=== PATIENT | female | born 1945 | race Caucasian/White ===

== ENCOUNTER 2016-10-29 07:16 | Emergency (ER) | payer MEDICARE, BC ==
[~2016-10-29 07:16] MED LIST: CAL; LORT7.5T3 PO; MULTI VIT; OXYC-360 PO; PHENERGAN; PREDPOW70 PO; PRIL20TA2 PO; PROM25SU8 PO
[2016-10-29 07:19] VITALS: BP 138/77; PULSE 118; RESP 16; TEMP 98.1; O2SAT 99
[2016-10-29] MEDS ORDERED: SODIUM CHLOR 0.9% 1000 ML INJ 1,000 ML IV SCH (07:33)
[2016-10-29] MEDS ORDERED: ONDANSETRON HCL 4 MG/2 ML VIAL IVP ONE (07:45)
[2016-10-29] MEDS ORDERED: SODIUM CHLORIDE 0.9% FLUSH 10 ML FLUSH IV FLUSH PRN (07:45)
[2016-10-29] MEDS ORDERED: MORPHINE SULFATE 4 MG/ML INJ IV PUSH ONE ×2 (08:00→09:45)
--- NOTE | 2016-10-29 08:01 | RADRPT ---
EXAM DATE/TIME: 10/29/2016 07:32 [facility] COMPARISON: No previous studies available for comparison. INDICATIONS : Lower right sided chest pain, upper right abdominal pain. MEDICAL HISTORY : Vinson's esophagus. SURGICAL HISTORY : None. ENCOUNTER: Initial ACUITY: 3 days PAIN SCORE: 5/10 LOCATION: Right lower chest FINDINGS: A single view of the chest demonstrates the lungs to be symmetrically aerated without evidence of in filtrate or effusion. There is a 7 mm nodule overlying the right lower lung field along the undersurf roger of the right eighth rib. It is fairly dense could be a granuloma. Suggest followup outpatient P A and lateral views of the chest or comparison with old films if available The cardiomediastinal con tours are unremarkable. Osseous structures are intact. CONCLUSION: There is a 7 mm nodule overlying the right lower lung field along the undersurface of the right eight h rib. It is fairly dense could be a granuloma. Suggest followup outpatient PA and lateral views of the chest or comparison with old films if available. Marc Maya MD on October 29, 2016 at 7:58 Board Certified Radiologist. This report was verified electronically.
--- NOTE | 2016-10-29 08:03 | PD ---
HPI Chief Complaint: GI Complaint Time Seen by Provider: 07:33 Travel History International Travel<30 days: No Contact w/Intl Traveler<30days: No Traveled to known affect area: No History of Present Illness HPI Patient is a 71-year-old female with history of diabetes, hypertension, hyper triglyceridemia, Vinson esophagus who presents to emergency room with complaints of right upper quadrant abdominal pain. Reports that symptoms began on Bryan night, reports that she isn't feeling nauseous, reports that overall, she has had decreased oral intake because of this pain. Patient reports nausea with no vomiting. Patient denies any constipation or diarrhea. Patient denies any chest pain or shortness of breath. Patient denies any fevers or chills. PFSH Past Medical History Asthma: No Heart Rhythm Problems: No High Cholesterol: Yes (HIGH CHOLESTERAL) Congestive Heart Failure: No COPD: No Diabetes: Yes GERD: Yes Genitourinary: No Headaches: No Hepatitis: No Hiatal Hernia: No Musculoskeletal: Yes Neurologic: No Reproductive: No Respiratory: No Migraines: No Myocardial Infarction: No Seizures: No Sleep Apnea: No Ulcer: No Past Surgical History Abdominal Surgery: Yes (HYSTERECTOMY) Cardiac Surgery: No Cholecystectomy: No Ear Surgery: No Eye Surgery: No Genitourinary Surgery: No Gynecologic Surgery: Yes Oral Surgery: No Thoracic Surgery: No Social History Alcohol Use: No Tobacco Use: No Substance Use: No Allergies-Medications (Allergen,Severity, Reaction): Coded Allergies: Dust (Unverified Allergy, Mild, 03/02/09) Latex (Unverified Adverse Reaction, Intermediate, 03/02/09) Adhesives (Verified Adverse Reaction, Unknown, IRRITATION, 10/29/16) Uncoded Allergies: TREES (Allergy, Mild, 03/02/09) Reported Meds & Prescriptions Reported Meds & Active Scripts Active Reported Phenergan (Promethazine HCl) 25 Mg Tab 25 Mg PO Q6HPRN FOR NAUSEA/VOMITING Lortab 7.5/500 (Acetaminophen/Hydrocodone Bitart) Tab 1 Tab PO Q4HPRN FOR PAIN [Phenergan] [Prednisone] PO DAILY Percocet (Oxycodone/Acetaminophen) 5 Mg/325 Mg Tab 1 Tab PO Q4HPRN FOR PAIN [Enrique] 1 DAILY [Multi Vit] 1 DAILY Prilosec Otc (Omeprazole Magnesium) 20 Mg Tab 20 Mg PO DAILY Review of Systems General / Constitutional: No: Fever, Chills Eyes: No: Visual changes HENT: No: Headaches Cardiovascular: No: Chest Pain or Discomfort Respiratory: No: Shortness of Breath Gastrointestinal: Positive: Nausea, Abdominal Pain, No: Vomiting, Constipation Genitourinary: No: Urgency, Frequency, Dysuria, Hematuria, Pelvic Pain Musculoskeletal: No: Pain Skin: No Rash Neurologic: No: Weakness Psychiatric: No: Depression Endocrine: No: Polydipsia Hematologic/Lymphatic: No: Easy Bruising Physical Exam Narrative GENERAL: Mild distress SKIN: Focused skin assessment warm/dry. HEAD: Atraumatic. Normocephalic. EYES: Pupils equal and round. No scleral icterus. No injection or drainage. ENT: No nasal bleeding or discharge. Mucous membranes pink and moist. NECK: Trachea midline. No JVD. CARDIOVASCULAR: Regular rate and rhythm. No murmur appreciated. RESPIRATORY: No accessory muscle use. Clear to auscultation. Breath sounds equal bilaterally. GASTROINTESTINAL: Abdomen soft, increased tenderness to right upper quadrant, positive McMurphy signed MUSCULOSKELETAL: No obvious deformities. No clubbing. No cyanosis. No edema. NEUROLOGICAL: Awake and alert. No obvious cranial nerve deficits. Motor grossly within normal limits. Normal speech. PSYCHIATRIC: Appropriate mood and affect; insight and judgment normal. Data Data Last Documented VS Vital Signs Date Time Temp Pulse Resp B/P Pulse Ox O2 Delivery O2 Flow Rate FiO2 10/29/16 07:19 98.1 118 16 138/77 99 Orders Complete Blood Count With Diff (10/29/16 07:33) Comprehensive Metabolic Panel (10/29/16 07:33) Lipase (10/29/16 07:33) Prothrombin Time / Inr (Pt) (10/29/16 07:33) Act Partial Throm Time (Ptt) (10/29/16 07:33) Urinalysis - C+S If Indicated (10/29/16 07:33) Iv Access Insert/Monitor (10/29/16 07:33) Ecg Monitoring (10/29/16 07:33) Oximetry (10/29/16 07:33) NPO (10/29/16 07:33) Ondansetron Inj (Zofran Inj) (10/29/16 07:45) Sodium Chlor 0.9% 1000 Ml Inj (Ns 1000 M (10/29/16 07:33) Sodium Chloride 0.9% Flush (Ns Flush) (10/29/16 07:45) Electrocardiogram (10/29/16 07:33) Chest, Single Ap (10/29/16 07:33) Us Abdomen Gallbladder (10/29/16 ) Morphine Inj (Morphine Inj) (10/29/16 08:00) Labs Laboratory Tests Test 10/29/16 10/29/16 07:45 08:10 White Blood Count 8.8 TH/MM3 Red Blood Count 5.08 MIL/MM3 Hemoglobin 14.3 GM/DL Hematocrit 44.1 % Mean Corpuscular Volume 86.8 FL Mean Corpuscular Hemoglobin 28.2 PG Mean Corpuscular Hemoglobin 32.5 % Concent Red Cell Distribution Width 14.2 % Platelet Count 187 TH/MM3 Mean Platelet Volume 9.8 FL Neutrophils (%) (Auto) 76.2 % Lymphocytes (%) (Auto) 10.6 % Monocytes (%) (Auto) 8.8 % Eosinophils (%) (Auto) 4.0 % Basophils (%) (Auto) 0.4 % Neutrophils # (Auto) 6.7 TH/MM3 Lymphocytes # (Auto) 0.9 TH/MM3 Monocytes # (Auto) 0.8 TH/MM3 Eosinophils # (Auto) 0.4 TH/MM3 Basophils # (Auto) 0.0 TH/MM3 CBC Comment DIFF FINAL Differential Comment Prothrombin Time 10.6 SEC Prothromb Time International 1.0 RATIO Ratio Activated Partial 28.1 SEC Thromboplast Time Sodium Level 135 MEQ/L Potassium Level 3.9 MEQ/L Chloride Level 102 MEQ/L Carbon Dioxide Level 19.7 MEQ/L Anion Gap 13 MEQ/L Blood Urea Nitrogen 15 MG/DL Creatinine 0.74 MG/DL Estimat Glomerular Filtration 78 ML/MIN Rate Random Glucose 116 MG/DL Calcium Level 9.5 MG/DL Total Bilirubin 0.5 MG/DL Aspartate Amino Transf 32 U/L (AST/SGOT) Alanine Aminotransferase 48 U/L (ALT/SGPT) Alkaline Phosphatase 55 U/L Total Protein 7.9 GM/DL Albumin 4.3 GM/DL Lipase 152 U/L Urine Color YELLOW Urine Turbidity CLEAR Urine pH 5.5 Urine Specific Hollister 1.036 Urine Protein TRACE mg/dL Urine Glucose (UA) 1000 mg/dL Urine Ketones 80 mg/dL Urine Occult Blood NEG Urine Nitrite NEG Urine Bilirubin NEG Urine Urobilinogen LESS THAN 2.0 MG/DL Urine Leukocyte Esterase TRACE Urine RBC 1 /hpf Urine WBC 3 /hpf Urine Squamous Epithelial 1 /hpf Cells Urine Bacteria RARE /hpf Microscopic Urinalysis Comment CULT NOT INDICATED MDM Medical Decision Making Medical Screen Exam Complete: Yes Emergency Medical Condition: Yes Interpretation(s) EKG at 0756: Sinus tach at 106bpm, qt/qtc: 349/411, no acute st or t wave changes Vital Signs Date Time Temp Pulse Resp B/P Pulse Ox O2 Delivery O2 Flow Rate FiO2 10/29/16 07:19 98.1 118 16 138/77 99 Differential Diagnosis Differential includes acute cholecystitis, gastritis, gastroenteritis, gastric ulcer, acs, arrhythmia Narrative Course Patient is a 71 year old female who presents to ER with c/o of abdominal pain. Patient reports pain to RUQ abdominal pain since Sunday night, reports increased nausea with symptoms. No fever/chills. Denies chest pain/sob. EKG obtained. Patient placed on sample paster. Lab work including LFT's ordered. RUQ US ordered to evaluate for acute cholecystitis as patient does have positive Payton's sign IVF and pain medications ordered Chest x-ray shows a 7 mm nodule overlying the right lower lung field - I did review this with patient as she will need to have follow-up. A copy of patient' s x-ray report was given to her as she will need to follow-up with further studies for this lung nodule. Laboratory Tests Test 10/29/16 10/29/16 07:45 08:10 White Blood Count 8.8 TH/MM3 (4.0-11.0) Red Blood Count 5.08 MIL/MM3 (4.00-5.30) Hemoglobin 14.3 GM/DL (11.6-15.3) Hematocrit 44.1 % (35.0-46.0) Mean Corpuscular Volume 86.8 FL (80.0-100.0) Mean Corpuscular Hemoglobin 28.2 PG (27.0-34.0) Mean Corpuscular Hemoglobin 32.5 % Concent (32.0-36.0) Red Cell Distribution Width 14.2 % (11.6-17.2) Platelet Count 187 TH/MM3 (150-450) Mean Platelet Volume 9.8 FL (7.0-11.0) Neutrophils (%) (Auto) 76.2 % (16.0-70.0) Lymphocytes (%) (Auto) 10.6 % (9.0-44.0) Monocytes (%) (Auto) 8.8 % (0.0-8.0) Eosinophils (%) (Auto) 4.0 % (0.0-4.0) Basophils (%) (Auto) 0.4 % (0.0-2.0) Neutrophils # (Auto) 6.7 TH/MM3 (1.8-7.7) Lymphocytes # (Auto) 0.9 TH/MM3 (1.0-4.8) Monocytes # (Auto) 0.8 TH/MM3 (0-0.9) Eosinophils # (Auto) 0.4 TH/MM3 (0-0.4) Basophils # (Auto) 0.0 TH/MM3 (0-0.2) CBC Comment DIFF FINAL Differential Comment Prothrombin Time 10.6 SEC (9.8-11.6) Prothromb Time International 1.0 RATIO Ratio Activated Partial 28.1 SEC Thromboplast Time (24.3-30.1) Sodium Level 135 MEQ/L (136-145) Potassium Level 3.9 MEQ/L (3.5-5.1) Chloride Level 102 MEQ/L (98-107) Carbon Dioxide Level 19.7 MEQ/L (21.0-32.0) Anion Gap 13 MEQ/L (5-15) Blood Urea Nitrogen 15 MG/DL (7-18) Creatinine 0.74 MG/DL (0.50-1.00) Estimat Glomerular Filtration 78 ML/MIN (>89) Rate Random Glucose 116 MG/DL (74-106) Calcium Level 9.5 MG/DL (8.5-10.1) Total Bilirubin 0.5 MG/DL (0.2-1.0) Aspartate Amino Transf 32 U/L (15-37) (AST/SGOT) Alanine Aminotransferase 48 U/L (10-53) (ALT/SGPT) Alkaline Phosphatase 55 U/L (45-117) Total Protein 7.9 GM/DL (6.4-8.2) Albumin 4.3 GM/DL (3.4-5.0) Lipase 152 U/L (73-393) Urine Color YELLOW (YELLW/STRAW) Urine Turbidity CLEAR (CLEAR) Urine pH 5.5 (5.0-8.5) Urine Specific Hollister 1.036 (1.002-1.035) Urine Protein TRACE mg/dL (NEG-TRACE) Urine Glucose (UA) 1000 mg/dL (NEG) Urine Ketones 80 mg/dL (NEG) Urine Occult Blood NEG (NEG) Urine Nitrite NEG (NEG) Urine Bilirubin NEG (NEG) Urine Urobilinogen LESS THAN 2.0 MG/DL (LESS THAN 2.0) Urine Leukocyte Esterase TRACE (NEG) Urine RBC 1 /hpf (0-3) Urine WBC 3 /hpf (0-5) Urine Squamous Epithelial 1 /hpf (0-5) Cells Urine Bacteria RARE /hpf (NONE) Microscopic Urinalysis Comment CULT NOT INDICATED Last Impressions Chest X-Ray 10/29/16 0733 Signed Impressions: Service Date/Time: Saturday, October 29, 2016 07:32 - CONCLUSION: There is a 7 mm nodule overlying the right lower lung field along the undersurface of the right eighth rib. It is fairly dense could be a granuloma. Suggest followup outpatient PA and lateral views of the chest or comparison with old films if available. Marc Maya MD Gall Bladder Ultrasound 10/29/16 0000 Signed Impressions: Service Date/Time: Saturday, October 29, 2016 08:11 - CONCLUSION: Echogenic liver presumably fatty infiltration. Sludge within the gallbladder without evidence of pericholecystic fluid or wall thickening. Marc Maya MD Patient re-evaluated, patient feeling better at this time. Reviewed all labs and all studies with patient in detail, patient with most likely biliary colic. lfts are all wnl, us of gallbladder shows sludge within the gallbladder wall without evidence of pericholecystic fluid or wall thickening. Patient is safe to be discharged at this time with outpatient follow-up. Signs and symptoms of acute abdomen was reviewed with patient, patient understands when to return to the emergency room. Patient will follow-up with general surgeon as soon as possible for elective cholecystectomy, encouraged bland diet with decreased fat intake. I did provide patient with a copy of her ultrasound report at discharge. 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, reports that she was told of the lung nodule in the past and was told that it was related to past history of histoplasmosis Diagnosis Primary Impression: Lung nodule, solitary Additional Impressions: Biliary colic symptom Biliary colic Referrals: Phong Putnam MD Patient Instructions: General Instructions, Narcotic given in the ED Additional Instructions: Please bring your ultrasound report to doctor's office for earliest follow-up Please call general surgeon first thing in the morning for earliest follow-up Return to the emergency room if symptoms worsen or progress or if you develop any fevers or chills Return to the ER as needed Disposition: 01 DISCHARGE HOME Condition: Stable Kala Lucero DO Oct 29, 2016 08:03
[2016-10-29 08:10] VITALS: BP 133/62; PULSE 109; PULSE 18; RESP 18; O2SAT 96
[2016-10-29 08:25] LABS: AUTOMATED NEUTROPHIL # 6.7 TH/MM3 (1.8-7.7); BASOPHIL % 0.4 % (0.0-2.0); EOSINOPHIL # 0.4 TH/MM3 (0-0.4); HEMATOCRIT 44.1 % (35.0-46.0); HEMO FLAGS DIFF FINAL; LYMPH % 10.6 % (9.0-44.0); LYMPHOCYTE # 0.9 TH/MM3 (1.0-4.8); MEAN CELL VOLUME 86.8 FL (80.0-100.0); MEAN CORPUSCULAR HEMOGLOBIN 28.2 PG (27.0-34.0); MEAN CORPUSCULAR HGB CONC 32.5 % (32.0-36.0); MONO % 8.8 % (0.0-8.0); NEUT % 76.2 % (16.0-70.0); PLATELET COUNT 187 TH/MM3 (150-450); RED BLOOD COUNT 5.08 MIL/MM3 (4.00-5.30); RED CELL DISTRIBUTION WIDTH 14.2 % (11.6-17.2); WHITE BLOOD COUNT 8.8 TH/MM3 (4.0-11.0)
[2016-10-29 08:36] LABS: APTT (PATIENT) 28.1 SEC (24.3-30.1); PROTHROMBIN TIME - PATIENT 10.6 SEC (9.8-11.6)
[2016-10-29 08:41] LABS: ANION GAP 13 MEQ/L (5-15); AST (GOT) 32 U/L (15-37); BICARBONATE 19.7 MEQ/L (21.0-32.0); BLOOD UREA NITROGEN 15 MG/DL (7-18); CHLORIDE 102 MEQ/L (98-107); GLOMERULAR FILTRATION RATE 78 ML/MIN (>89); POTASSIUM 3.9 MEQ/L (3.5-5.1); SODIUM (NA) 135 MEQ/L (136-145)
[2016-10-29 08:42] LABS: ALT (GPT) 48 U/L (10-53)
[2016-10-29 08:44] LABS: ALKALINE PHOSPHATASE 55 U/L (45-117); TOTAL BILIRUBIN ADULT 0.5 MG/DL (0.2-1.0)
[2016-10-29 08:44] LABS: BACTERIA, URINE RARE /hpf; BLOOD, URINE NEG (NEG); COMMENT (UR) CULT NOT INDICATED; CULTURE IF INDICATED CULT NOT INDICATED; GLUCOSE,URINE 1000 mg/dL (NEG); KETONE, URINE 80 mg/dL (NEG); NITRITE,URINE NEG (NEG); PH, URINE 5.5 (5.0-8.5); SQUAMOUS EPITHELIAL CELL URINE 1 /hpf (0-5); URINE COLOR YELLOW (YELLW/STRAW)
--- NOTE | 2016-10-29 09:09 | RADRPT ---
EXAM DATE/TIME: 10/29/2016 08:11 [facility] COMPARISON: No previous studies available for comparison. INDICATIONS : Right upper quadrant pain. MEDICAL HISTORY : Hypercholesterolemia. Gastroesophageal reflux disease. Dyspnea. Diabetes. Arthritis. Right upper qu adrant pain. SURGICAL HISTORY : Hysterectomy. ENCOUNTER: Initial ACUITY: 4-6 days PAIN SCORE: 4/10 LOCATION: Right upper quadrant MEASUREMENTS: LIVER: 18.0 cm length COMMON DUCT: 6 mm RIGHT KIDNEY: 10.7 x 5.4 x 6.6 cm FINDINGS: LIVER: Increased echotexture without focal lesion or ductal dilatation. COMMON DUCT: No intraluminal mass or stone visualized. GALLBLADDER: Contains no stones but there does appear to be sludge throughout the gallbladder. US demonstrates n o wall thickening or pericholecystic fluid. PANCREAS: The visualized portions are within normal limits. RIGHT KIDNEY: No evidence of hydronephrosis, stone, or mass. CONCLUSION: Echogenic liver presumably fatty infiltration. Sludge within the gallbladder without evidence of tesha cholecystic fluid or wall thickening. Marc Maya MD on October 29, 2016 at 9:07 Board Certified Radiologist. This report was verified electronically.
[2016-10-29] MEDS ORDERED: METF1000 PO (09:39)
[2016-10-29] MEDS ORDERED: EMPA1TAB3 PO (09:39)
[2016-10-29] MEDS ORDERED: LEVEMIR SQ (09:39)
[2016-10-29] MEDS ORDERED: GLIP5TAB8 PO (09:39)
[2016-10-29] MEDS ORDERED: PANT40TA3 PO (09:39)
[2016-10-29] MEDS ORDERED: MOME17I EACH NARE (09:45)
[2016-10-29] MEDS ORDERED: MONT10TA2 PO (09:45)
[2016-10-29] MEDS ORDERED: CLAR5TAB PO (09:45)
[2016-10-29 10:02] VITALS: BP 143/67; PULSE 94; RESP 18; O2SAT 98
--- NOTE | 2016-10-29 13:17 | EKG ---
Date Performed: 10/29/2016 Time Performed: 07:56:49 PTAGE: 71 years EKG: SINUS TACHYCARDIA POSSIBLE INFERIOR MYOCARDIAL INFARCTION ABNORMAL ECG PREVIOUS TRACING : 10/29/2016 07.50 Compared to prior tracing no significant change DOCTOR: Adan Perea Interpretating Date/Time 10/31/2016 06:56:03
== END 2016-10-29 10:44 | disposition home or self-care (01) ==
LOC: NEPC 07:16
DX: R91.1 Solitary pulmonary nodule (principal); K80.50 Calculus of bile duct without cholangitis or cholecystitis without obstruction; K81.0 Acute cholecystitis; R00.0 Tachycardia, unspecified; R94.31 Abnormal electrocardiogram [ECG] [EKG]; E11.9 Type 2 diabetes mellitus without complications; I10 Essential (primary) hypertension; E78.1 Pure hyperglyceridemia; K21.9 Gastro-esophageal reflux disease without esophagitis
CPT/HCPCS: 71010; 76705; 80053; 81001; 83690; 85025; 85610; 85730; 93005; 96361; 96374; 96375; 96376; 99285; J2270; J2405; J7030

== ENCOUNTER → 2016-10-31 | Day surgery (SDC) | payer MEDICARE, BC ==
[~2016-10-31] MED LIST changes: +BUPIVACAINE/EPINEPHRINE 0.5% 50 ML VIAL ONE; +CEPH-460 PO; +CLAR5TAB PO; +EMPA1TAB3 PO; +GLIP5TAB8 PO; +HYDR-3533 PO; +KETOROLAC TROMETHAMINE 30 MG/ML (IVP) VIAL IV PUSH ONE; +LACTATED RINGER'S 1000 ML INJ 1,000 ML ONE; +LEVEMIR SQ; +MEPERIDINE HCL 50 MG/ML VIAL ONE; +METF1000 PO; +MIDAZOLAM HCL 2 MG/2 ML VIAL ONE; +MOME17I EACH NARE; +MONT10TA2 PO; +ONDANSETRON HCL 4 MG/2 ML VIAL IV PUSH ONE; +PANT40TA3 PO; +PROPOFOL 200 MG/20 ML AMP IV ONE; +ceFAZolin 2 GM PREMIX 50 ML ONE; +metroNIDAZOLE 500 MG INJ 100 ML IV ONE
--- NOTE | 2016-10-31 17:24 | TN ---
cc: SHIMA POP MD DATE OF SURGERY October 31, 2078 PREOPERATIVE DIAGNOSIS Gallbladder sludge, right upper quadrant pain, nausea and inability to tolerate oral intake. POSTOPERATIVE DIAGNOSES Gallbladder sludge, right upper quadrant pain, nausea and inability to tolerate oral intake. PROCEDURE Laparoscopic cholecystectomy. SURGEON Dr. Shima Pop DINING ROOM SUPERVISOR Emily Richardpaul, MS III ANESTHESIA General INDICATIONS A very pleasant 71-year old woman who came into my office today after two days of severe right-sided abdominal pain associated with nausea, emesis and inability to tolerate oral intake. She had been seen in the ER two days ago, had an ultrasound which showed sludge, had a normal white count with 76% neutrophils, normal liver function tests and normal lipase. Her pain has not gotten better. The only thing that improved her pain was a shot of morphine in the ER. She is anxious to pursue cholecystectomy. Her sister had her gallbladder removed. INTRAOPERATIVE FINDINGS A gallbladder with fairly dense adhesions down at its base of the gallbladder where these adhesions attached the duodenum to the gallbladder. The gallbladder was removed in its entirety, passed off the field for pathologic evaluation. Estimated blood loss less than five M L. Incidental finding - omental adhesion to the inferior umbilicus taken down. PROCEDURE IN DETAIL The patient was identified as Marie Rodas, take to the operating room and placed in supine position. Sequential compression devices were placed on bilateral lower extremities. Following induction of adequate general endotracheal anesthesia, the patient's abdomen was prepped and draped in usual sterile fashion with Betadine. A time-out procedure was performed. Following completion of time-out procedure to everyone's satisfaction within the room, 0.5% Marcaine with epinephrine was placed at each incision site. The previous infraumbilical small transverse incision was opened and extended slightly in both directions. Dissection continued posteriorly to the level of the base of the umbilicus which was retracted anteriorly using a Yasmine clamp. The infraumbilical midline fascia was incised with a scalpel and entry into peritoneal cavity facilitated with the surgeon's finger. The applied medical balloon Ochoa trocar was placed in the peritoneal cavity, its balloon inflated until an insufflation to the level of 15 mmHg ensued. The patient was placed in a reverse Trendelenburg position turned to the left. Two upper midline 5 mm trocars were then placed in the peritoneal cavity under direct laparoscopic view after incision of the skin with a scalpel. Gallbladder was immediately identified, was retracted superiorly. Inferiorly there were adhesions from the gallbladder to the duodenum. The gallbladder was removed from the gallbladder fossa in a dome down technique using the harmonic scalpel. Adhesions between the gallbladder and the omentum were divided with a harmonic scalpel. There was no evidence of injury to the duodenum. Careful dissection down at the base of the gallbladder at its junction with the cystic duct was performed. It looked like the common duct was tented up and the cystic duct was fairly short. The cystic artery was divided with a harmonic scalpel. The cystic duct was ligated proximal to its junction with the common bile duct and a second 0-PDS Endoloop was placed onto the gallbladder. The gallbladder was divided just between the two 0-PDS Endo-loops. The gallbladder was removed from the peritoneal cavity through the infraumbilical fascial port incision site and passed off the field for pathologic evaluation. The right upper quadrant was examined. There was no bilious or bloody drainage of any significance. There was no abnormality to the liver. Remaining local anesthetic was placed in the subhepatic and subdiaphragmatic position on the right side. They had been noted an omental adhesion beneath the umbilical port. This was taken down with the harmonic scalpel. The trocars removed under direct visualization. There was no evidence of bleeding from trocar sites. The abdomen was desufflated through the infraumbilical port and was then removed. The infraumbilical fascial incision was closed with interrupted 0 Vicryl sutures. Port sites were irrigated copiously with saline. Skin incisions were approximated with 4-0 Monocryl subcuticular sutures. Dressings were applied with Dermabond. No Mastisol or 1/2" Steri-strips were used. The patient tolerated the procedure without apparent complication. Sponge, needle and instrument counts were correct at the end of the case. MD KE Richards/ /4:16 PM /5:15 PM AGUSTÍN
== END | disposition home or self-care (01) ==
LOC: ESDC 13:01
PROVIDERS: ATTEND Surgery Trauma Surgery
DX: K83.9 Disease of biliary tract, unspecified (principal); K82.8 Other specified diseases of gallbladder; E11.9 Type 2 diabetes mellitus without complications; Z79.4 Long term (current) use of insulin
CPT/HCPCS: 00790; 47562; 82948; 88304; J0690; J1885; J2175; J2250; J2405; J3010; J7120

== ENCOUNTER 2016-11-09 13:14 | Emergency (ER) | payer MEDICARE, BC ==
[~2016-11-09 13:14] MED LIST changes: -BUPIVACAINE/EPINEPHRINE 0.5% 50 ML VIAL ONE; -CAL; -CEPH-460 PO; -HYDR-3533 PO; -KETOROLAC TROMETHAMINE 30 MG/ML (IVP) VIAL IV PUSH ONE; -LACTATED RINGER'S 1000 ML INJ 1,000 ML ONE; -LORT7.5T3 PO; -MEPERIDINE HCL 50 MG/ML VIAL ONE; -MIDAZOLAM HCL 2 MG/2 ML VIAL ONE; -MULTI VIT; -ONDANSETRON HCL 4 MG/2 ML VIAL IV PUSH ONE; -OXYC-360 PO; -PHENERGAN; -PREDPOW70 PO; -PRIL20TA2 PO; -PROM25SU8 PO; -PROPOFOL 200 MG/20 ML AMP IV ONE; -ceFAZolin 2 GM PREMIX 50 ML ONE; -metroNIDAZOLE 500 MG INJ 100 ML IV ONE
[2016-11-09 13:16] VITALS: BP 119/67; PULSE 110; RESP 20; TEMP 97.5; O2SAT 94
--- NOTE | 2016-11-09 13:40 | PD ---
Physical Exam Time Seen by Provider: 13:38 Narrative 71 y/o female here after cholecystectomy 10/[address] Bello. Here with R flank /RUQ abdominal pain for 3 days. Vital signs reviewed. Seen at triage desk. Awaiting bed placement. Data Data Last Documented VS Vital Signs Date Time Temp Pulse Resp B/P Pulse Ox O2 Delivery O2 Flow Rate FiO2 11/09/16 13:16 97.5 110 20 119/[address] [facility] Medical Record Reviewed: Yes Supervised Visit with ROSALIA: No Alin Butt Nov 09, 2016 13:40
[2016-11-09 14:36] LABS: AUTOMATED NEUTROPHIL # 4.5 TH/MM3 (1.8-7.7); BASOPHIL % 0.5 % (0.0-2.0); EOSINOPHIL # 0.3 TH/MM3 (0-0.4); EOSINOPHIL % 3.6 % (0.0-4.0); HEMATOCRIT 41.1 % (35.0-46.0); HEMO FLAGS DIFF FINAL; LYMPHOCYTE # 2.8 TH/MM3 (1.0-4.8); MEAN CELL VOLUME 85.3 FL (80.0-100.0); MONO % 9.8 % (0.0-8.0); NEUT % 53.1 % (16.0-70.0); PLATELET COUNT 269 TH/MM3 (150-450); RED BLOOD COUNT 4.82 MIL/MM3 (4.00-5.30); RED CELL DISTRIBUTION WIDTH 14.1 % (11.6-17.2); WHITE BLOOD COUNT 8.5 TH/MM3 (4.0-11.0)
[2016-11-09 14:52] LABS: ANION GAP 10 MEQ/L (5-15); AST (GOT) 18 U/L (15-37); BICARBONATE 23.7 MEQ/L (21.0-32.0); BLOOD UREA NITROGEN 14 MG/DL (7-18); CHLORIDE 102 MEQ/L (98-107); GLOMERULAR FILTRATION RATE 94 ML/MIN (>89); POTASSIUM 3.6 MEQ/L (3.5-5.1); SODIUM (NA) 136 MEQ/L (136-145)
[2016-11-09 14:54] LABS: ALT (GPT) 42 U/L (10-53)
[2016-11-09 14:56] LABS: ALKALINE PHOSPHATASE 57 U/L (45-117); TOTAL BILIRUBIN ADULT 0.4 MG/DL (0.2-1.0)
[2016-11-09 15:09] LABS: BLOOD, URINE NEG (NEG); COMMENT (UR) CULTURE INDICATED; CULTURE IF INDICATED CULTURE INDICATED; GLUCOSE,URINE 1000 mg/dL (NEG); KETONE, URINE NEG (NEG); NITRITE,URINE NEG (NEG); PH, URINE 5.5 (5.0-8.5); SQUAMOUS EPITHELIAL CELL URINE <1 /hpf (0-5); URINE COLOR LIGHT-YELLOW (YELLW/STRAW)
--- NOTE | 2016-11-09 16:40 | PD ---
HPI Chief Complaint: Abdominal Pain Time Seen by Provider: 16:15 Travel History International Travel<30 days: No Contact w/Intl Traveler<30days: No Traveled to known affect area: No History of Present Illness HPI 71yo F with recent lap cholecystectomy by Dr. Bello on 10/31/16 presents to the ED with c/o right upper abdominal pain radiating to right flank for 3 days. States she went to Dr. Bello's office for follow up yesterday and was given flexeril because they thought it was muscle pain. States flexeril does not help and called his office today and instructed to come to the ED. Denies any fever, chest pain, sob, n/v, dysuria, hematuria. Pt had total hysterectomy years ago. Normal bowel movements. PFSH Past Medical History Asthma: No Heart Rhythm Problems: No High Cholesterol: Yes Congestive Heart Failure: No COPD: No Diabetes: Yes Patient Takes Glucophage: Yes Diminished Hearing: No Gastrointestinal Disorders: Yes (BARRETS ESOPHAGUS) GERD: Yes Genitourinary: No Headaches: No Hepatitis: No Hiatal Hernia: No Hypertension: Yes Musculoskeletal: Yes (FRACTURE ELBOW -LEFT ) Neurologic: No Reproductive: No Respiratory: No Immunizations Current: No Migraines: No Myocardial Infarction: No Seizures: No Sleep Apnea: No Ulcer: No Tetanus Vaccination: < 5 Years Influenza Vaccination: No ?: Not Past Surgical History Abdominal Surgery: Yes (HYSTERECTOMY) Cardiac Surgery: No Cholecystectomy: Yes Ear Surgery: No Eye Surgery: No Genitourinary Surgery: No Gynecologic Surgery: Yes (HYSTERECTOMY ) Hysterectomy: Yes Oral Surgery: No Thoracic Surgery: No Other Surgery: Yes Social History Alcohol Use: No Tobacco Use: No Substance Use: No Allergies-Medications (Allergen,Severity, Reaction): Coded Allergies: Dust (Unverified Allergy, Mild, 10/29/16) Latex (Unverified Adverse Reaction, Intermediate, 10/29/16) Adhesives (Verified Adverse Reaction, Unknown, IRRITATION, 10/29/16) Uncoded Allergies: TREES (Allergy, Mild, 03/02/09) Reported Meds & Prescriptions Reported Meds & Active Scripts Active Reported Nasonex Nasal [place] (Mometasone Furoate) 50 Mcg/Act Naspr 2 [place] EACH NARE DAILY Clarinex (Desloratadine) 5 Mg Tab 5 Mg PO DAILY Singulair (Montelukast Sodium) 10 Mg Tab 10 Mg PO HS Pantoprazole (Pantoprazole Sodium) 40 Mg Tab 40 Mg PO DAILY Jardiance (Empagliflozin) 25 Mg Tab 25 Mg PO DAILY Levemir Inj (Insulin Detemir) 1,000 unit/ 10 ML Vial 70 Units SQ HS Do not mix with any other Insulin. Glipizide 5 Mg Tab 5 Mg PO BIDAC Take 30 minutes before a meal Metformin (Metformin HCl) 1,000 Mg Tab 1,000 Mg PO BIDPC With meals Review of Systems Except as stated in HPI: all other systems reviewed are Neg Physical Exam Narrative GENERAL: 71yo F in mild distress. SKIN: Focused skin assessment warm/dry. HEAD: Atraumatic. Normocephalic. CARDIOVASCULAR: Regular rate and rhythm. No murmur appreciated. RESPIRATORY: No accessory muscle use. Clear to auscultation. Breath sounds equal bilaterally. GASTROINTESTINAL: Abdomen soft, +TTP RUQ. Surgical wounds clean, dry and intact. BACK: +CVA tenderness on right. MUSCULOSKELETAL: No obvious deformities. No clubbing. No cyanosis. No edema. NEUROLOGICAL: Awake and alert. No obvious cranial nerve deficits. Motor grossly within normal limits. Normal speech. PSYCHIATRIC: Appropriate mood and affect; insight and judgment normal. Data Data Last Documented VS Vital Signs Date Time Temp Pulse Resp B/P Pulse Ox O2 Delivery O2 Flow Rate FiO2 11/09/16 17:45 70 14 142/74 99 Room Air 11/09/16 13:16 97.5 Orders Complete Blood Count With Diff (11/09/16 14:12) Comprehensive Metabolic Panel (11/09/16 14:12) Lipase (11/09/16 14:12) Urinalysis - C+S If Indicated (11/09/16 14:12) Urine Culture (11/09/16 14:25) Ceftriaxone Inj (Rocephin Inj) (11/09/16 16:45) Ct Abd/Pel W Iv Contrast(Rout) (11/09/16 ) Morphine Inj (Morphine Inj) (11/09/16 16:45) Iohexol 350 Inj (Omnipaque 350 Inj) (11/09/16 18:13) Labs Laboratory Tests Test 11/09/16 11/09/16 14:20 14:25 White Blood Count 8.5 TH/MM3 Red Blood Count 4.82 MIL/MM3 Hemoglobin 14.0 GM/DL Hematocrit 41.1 % Mean Corpuscular Volume 85.3 FL Mean Corpuscular Hemoglobin 29.0 PG Mean Corpuscular Hemoglobin 34.0 % Concent Red Cell Distribution Width 14.1 % Platelet Count 269 TH/MM3 Mean Platelet Volume 9.2 FL Neutrophils (%) (Auto) 53.1 % Lymphocytes (%) (Auto) 33.0 % Monocytes (%) (Auto) 9.8 % Eosinophils (%) (Auto) 3.6 % Basophils (%) (Auto) 0.5 % Neutrophils # (Auto) 4.5 TH/MM3 Lymphocytes # (Auto) 2.8 TH/MM3 Monocytes # (Auto) 0.8 TH/MM3 Eosinophils # (Auto) 0.3 TH/MM3 Basophils # (Auto) 0.0 TH/MM3 CBC Comment DIFF FINAL Differential Comment Sodium Level 136 MEQ/L Potassium Level 3.6 MEQ/L Chloride Level 102 MEQ/L Carbon Dioxide Level 23.7 MEQ/L Anion Gap 10 MEQ/L Blood Urea Nitrogen 14 MG/DL Creatinine 0.63 MG/DL Estimat Glomerular Filtration 94 ML/MIN Rate Random Glucose 90 MG/DL Calcium Level 9.9 MG/DL Total Bilirubin 0.4 MG/DL Aspartate Amino Transf 18 U/L (AST/SGOT) Alanine Aminotransferase 42 U/L (ALT/SGPT) Alkaline Phosphatase 57 U/L Total Protein 7.2 GM/DL Albumin 3.9 GM/DL Lipase 178 U/L Urine Color LIGHT-YELLOW Urine Turbidity CLEAR Urine pH 5.5 Urine Specific [place] 1.010 Urine Protein NEG mg/dL Urine Glucose (UA) 1000 mg/dL Urine Ketones NEG mg/dL Urine Occult Blood NEG Urine Nitrite NEG Urine Bilirubin NEG Urine Urobilinogen LESS THAN 2.0 MG/DL Urine Leukocyte Esterase LARGE Urine RBC 1 /hpf Urine WBC 36 /hpf Urine Squamous Epithelial <1 /hpf Cells Microscopic Urinalysis Comment CULTURE INDICATED MDM Medical Decision Making Medical Screen Exam Complete: Yes Emergency Medical Condition: Yes Differential Diagnosis Pyelonephritis vs. nephrolithiasis vs. Hematoma vs. adhesions vs. partial obstruction Narrative Course 71yo F with recent lap cholecystectomy here with RUQ and right back pain for 3 days. Labs reviewed, no leukocytosis. CMP unremarkable. No elevated LFTs. Lipase normal. UA showed large leukocyte. WBC 36. Pt given ceftriaxone 1gm IV for UTI. Pt given morphine 4mg IV for pain. I discussed case with Dr. Bello and he agrees that if CTa/p is negative, then pt can follow up with him as outpatient after pain control. Pt reevaluated at bedside and states morphine helped and now it is coming back, she wants another dose before she goes. CTa/p showed hepatic steatosis. Diverticulosis. Right renal cyst. Pt is well appearing and tolerating PO. Will give antibiotics for UTI. Return precautions given. Diagnosis Primary Impression: UTI (urinary tract infection) Qualified Code: N39.0 - Urinary tract infection without hematuria, site unspecified Patient Instructions: General Instructions Departure Forms: Tests/Procedures Additional Instructions: Please follow up with your PMD and Dr. Bello. Return to the ED if symptoms worsen. Med/Other Pt SpecificInfo: Prescription(s) given Scripts Hydrocodone-Acetaminophen (Lortab)5-325 Mg Tab1 Tab PO Q6H PRN (PAIN) #12 TAB Ref 0 Prov:Soledad Hall DO 11/09/16 Cephalexin (Keflex)500 Mg [id number] Mg PO Q12H 7 Days Ref 0 Prov:Soledad Hall DO 11/09/16 Disposition: 01 DISCHARGE HOME Condition: Stable Soledad Hall DO Nov 09, 2016 16:39
[2016-11-09] MEDS ORDERED: MORPHINE SULFATE 4 MG/ML INJ IV PUSH ONE ×2 (16:45→18:45)
[2016-11-09] MEDS ORDERED: cefTRIAXone INJ 1,000 MG in SODIUM CHLORIDE 0.9% INJ 100 ML IV ONE (16:45)
[2016-11-09 17:45] VITALS: BP 142/74; PULSE 70; RESP 14; O2SAT 99
[2016-11-09] MEDS ORDERED: IOHEXOL 350 MG/ML 10 ML VIAL (for RAD DIAG) IV ONE (18:13)
--- NOTE | 2016-11-09 18:19 | RADRPT ---
EXAM DATE/TIME: 11/09/2016 17:56 [facility] COMPARISON: No previous studies available for comparison. INDICATIONS : Gallbladder removed now having pain in same area IV CONTRAST: 86 cc Omnipaque 350 (iohexol) IV ORAL CONTRAST: No oral contrast ingested. RADIATION DOSE: 8.80 CTDIvol (mGy) MEDICAL HISTORY : Hypertension. [place] esophogus SURGICAL HISTORY : Hysterectomy. ENCOUNTER: Initial ACUITY: 1 day PAIN SCALE: 7/10 LOCATION: Abdomen TECHNIQUE: Volumetric scanning of the abdomen and pelvis was performed. Using automated exposure control and ad justment of the mA and/or kV according to patient size, radiation dose was kept as low as reasonably achievable to obtain optimal diagnostic quality images. DICOM format image data is available electro nically for review and comparison. FINDINGS: There is hepatic steatosis. The patient is status post cholecystectomy. No ductal dilatation or focal fluid collections identified in the gallbladder fossa. There is a tiny cyst at the mid to lower righ t kidney. Left kidney, spleen, pancreas, adrenal glands, stomach and unremarkable. Urinary bladder un remarkable. The patient is status post hysterectomy. Diverticulosis of the sigmoid colon and transver se colon without diverticulitis. The lung bases are clear. There is mild dextroscoliosis of the lumba r spine and degenerative changes. Appendix normal. CONCLUSION: 1. Hepatic steatosis. 2. Diverticulosis. 3. Right renal cyst. Jim Mcmullen MD on November 09, 2016 at 18:15 Board Certified Radiologist. This report was verified electronically.
[2016-11-09] MEDS ORDERED: CEPH-460 PO (18:51)
[2016-11-09] MEDS ORDERED: HYDR-3533 PO (18:51)
[2016-11-09 19:18] VITALS: BP 166/74
== END 2016-11-09 19:20 | disposition home or self-care (01) ==
LOC: NEPC 13:14
DX: N39.0 Urinary tract infection, site not specified (principal); K76.0 Fatty (change of) liver, not elsewhere classified; K57.90 Diverticulosis of intestine, part unspecified, without perforation or abscess without bleeding; N28.1 Cyst of kidney, acquired; E11.9 Type 2 diabetes mellitus without complications; I10 Essential (primary) hypertension; E78.00 Pure hypercholesterolemia, unspecified; Z98.890 Other specified postprocedural states; Z79.4 Long term (current) use of insulin; Z87.19 Personal history of other diseases of the digestive system; Z87.39 Personal history of other diseases of the musculoskeletal system and connective tissue
CPT/HCPCS: 74177; 80053; 81001; 83690; 85025; 87086; 96365; 96375; 96376; 99285; J0696; J2270; Q9967